=== PATIENT | female | born 2000 | race Caucasian/White ===

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

== ENCOUNTER → 2020-03-01 | Outpatient (CLI) | payer BC ==
[2020-03-02 09:08] LABS: RHEUMATOID ARTHRITIS FACTOR <10.0 IU/mL (0.0-13.9)
[2020-03-03 20:05] LABS: CCP ANTIBODIES IGG/IGA 11 units (0-19)
[2020-03-04 20:08] LABS: LUPUS DRVVT 39.9 sec (0.0-47.0)
[2020-03-04 21:03] LABS: LUPUS REFLEX INTERPRETATION Comment: (.)
== END | disposition home or self-care (01) ==
LOC: LAB 11:47
PROVIDERS: Nurse Practitioner Family
DX: M54.41 Lumbago with sciatica, right side (principal); M25.552 Pain in left hip; M25.551 Pain in right hip; I10 Essential (primary) hypertension